=== PATIENT | female | born 1980 | race Caucasian/White ===

== ENCOUNTER → 2022-04-09 | Day surgery (SDC) | payer BC ==
[~2022-04-09] MED LIST: Midazolam 1 MG/ML 2 ML SDV ONE; Propofol 200 MG/20 ML SDV ONE; fentaNYL 100 MCG/2 ML SDV ONE
== END ==
LOC: JP.SDS 06:00
PROVIDERS: ATTEND Student in an Organized Health Care Education/Training Program
DX: K52.9 Noninfective gastroenteritis and colitis, unspecified (principal); K63.5 Polyp of colon; F17.200 Nicotine dependence, unspecified, uncomplicated; E66.9 Obesity, unspecified; Z83.79 Family history of other diseases of the digestive system; Z20.822 Contact with and (suspected) exposure to COVID-19
CPT/HCPCS: 45380; 45385; J2250; J2704; J3010